=== PATIENT | male | born 1990 | race Caucasian/White ===

== ENCOUNTER 2024-04-26 13:49 | Emergency (ER) | payer MEDICAID ==
[~2024-04-26] VITALS: Ht 175.3 cm; Wt 90.7 kg
[2024-04-26 14:06] VITALS: BP_SYST 154; PULSE 90; RESP 18; TEMP 98.2; O2SAT 97
[2024-04-26] MEDS: IBUPROFEN 800 MG TABLET PO ONE (15:10)
[2024-04-26] MEDS: HYDROcodone/ACETAMIN 10-325 MG TAB PO ONE (15:11)
[2024-04-26] MEDS ORDERED: IBUP-1971 PO (15:11)
[2024-04-26] MEDS ORDERED: TRAM50TA2 PO (15:11)
[2024-04-26 16:07] VITALS: BP_SYST 147; PULSE 78; RESP 18; TEMP 98.2; O2SAT 97
== END 2024-04-26 16:08 | disposition home or self-care (01) ==
LOC: SED 13:49
DX: S43.492A Other sprain of left shoulder joint, initial encounter (principal); M25.522 Pain in left elbow; M25.532 Pain in left wrist; W18.39XA Other fall on same level, initial encounter; Y93.89 Activity, other specified; Y92.89 Other specified places as the place of occurrence of the external cause; Y99.8 Other external cause status
CPT/HCPCS: 73030; 99284